=== PATIENT | female | born 1950 | race Caucasian/White ===

== ENCOUNTER 2024-05-12 06:01 | Inpatient (IN) | payer MEDICARE, OTHER, SELFPAY ==
[2024-05-10 10:40] VITALS: BMI 26.6
[2024-05-12] VITALS (9 sets, daily range): BP systolic 117–148; BP diastolic 68–79; PULSE 58–69; RESP 10–16; TEMP 36.2–36.7; O2SAT 94–99; BMI 26.6
[2024-05-12] MEDS: LACTATED RINGERS 1,000 ML 84 ML IV (07:07)
[2024-05-12] MEDS: VANCOMYCIN 1,000 MG/200 ML PIGGYBACK 200 MG IV (07:08)
[2024-05-12] MEDS: ACETAMINOPHEN 325 MG TABLET 975 MG PO (07:08)
[2024-05-12] MEDS: CELECOXIB 200 MG CAPSULE PO (07:09)
--- NOTE | 2024-05-12 07:38 | PM.PREOP ---
Pre-operative Note Interval Note History & Physical reviewed/Exam performed by Physician: Yes Changes to H&P: No
--- NOTE | 2024-05-12 07:38 | PM.OP.1 ---
Operative Date/Time/Diagnoses Date of procedure: 05/12/24 Time of procedure: 08:00 Pre-op diagnosis: Loose left knee patellar component status post total knee arthroplasty Post-op diagnosis: same Procedure & Clinicians Procedure: Left knee excision of and removal of patellar component Same procedure as scheduled: Yes Indications: This is a 73-year-old who has a remote history of a right total knee arthroplasty up in [place]. She did have fragmentation of her patella and loosening of her patella component. The component has progressively loosened and migrated and is causing substantial pressure on the skin. She was brought to the operating room for removal of the patellar component. Procedure options risks benefits and complications were discussed in detail Surgeon: Fiordaliza Jimenes Click Yes if Unassisted: Yes Anesthesia Type: General Operative Notes Findings: Grossly loose patellar component. Removed without difficulty. Additional cement chips removed without difficulty. Communication with the knee joint. Closure Type: primary Specimen(s): other (Synovium sent for PCR and culture and sensitivity) Estimated Blood Loss (mL): 20 Blood products transfused: none Tourniquet time (min): 22 Procedure in detail: Patient was brought to the operating room. A time-out was performed. She was given IV antibiotics. She underwent induction of general anesthesia. The right lower extremity was prepped draped standard sterile fashion. The patient's leg was positioned in a position that allowed flexion. The leg was flexed up. There was a more lateral skin incision but the patellar component was very prominent on the skin medially. A small incision was made over the anterior aspect of the knee dissection was carried out through skin and subcutaneous tissues. The patellar component was easily identifiable. It was carefully removed. I dissected soft tissue free from the patellar component and then removed any residual cement pieces. Portion of the synovium was sent for culture and sensitivity and for PCR to rule out low-grade infection. The knee was then meticulously irrigated with dilute saline. Final check showed no additional loose fragments or loose bodies. The wound was closed with interrupted Tevdek and Vicryl running Monocryl and several skin ghazala in glue. The wound was dressed sterilely. She tolerated the procedure well. Complications none. Complications: none Post-operative Condition: stable Disposition: Acute Care Plan for aftercare: Weightbearing as tolerated on the right lower extremity. Okay to begin [id number] exercises. Okay to start doing straight leg raises. Keep incision dry. Return to clinic for x-rays and wound check in 10-14 days. Two sutures to be removed.
[2024-05-12] MEDS: CEFAZOLIN 2 GM/100 ML PREMIX 100 ML IV (07:59)
--- NOTE | 2024-05-12 08:08 | SUR.OPER ---
Supine on padded OR bed. Pillow under head, arms secured on padded armboards <90 degree abduction. Safety belt across torso. Non-operative leg secured with tape over blanket over lower leg. Foam padded brace at thigh of operative leg.
[2024-05-12] MEDS: BUPIVACAINE 0.25% (PF) 60 ML, EPINEPHrine 0.3 MG INJ (08:18)
[2024-05-12] MEDS: OXYCODONE IR 5 MG TABLET PO (09:00)
== END 2024-05-12 09:42 | disposition home or self-care (01) | DRG 465 ==
PROVIDERS: Admitting Provider Orthopaedic Surgery; PCP Family Medicine; Referring Provider Orthopaedic Surgery; Visit Provider Orthopaedic Surgery
PROC: 0SPC0NZ Removal of Patellofemoral Synthetic Substitute from Right Knee Joint, Open Approach (ICD-10-PCS; principal; 2024-05-12 07:45)
DX: T84.032A Mechanical loosening of internal right knee prosthetic joint, initial encounter (principal)
CPT/HCPCS: 87070; 87075; 87205; 87801; J0171; J0690

== ENCOUNTER 2025-04-11 06:06 | Day surgery (SDC) | payer MEDICARE, OTHER, SELFPAY ==
[2025-04-05 14:19] VITALS: BMI 27.6
[2025-04-11] VITALS (13 sets, daily range): BP systolic 124–188; BP diastolic 59–86; PULSE 61–78; RESP 16–18; TEMP 36.4–36.7; O2SAT 94–98; BMI 28.5
--- NOTE | 2025-04-11 06:00 | DI.RAD.S_ITS ---
PROCEDURE: XR KNEE LT 1TO2V INDICATIONS: Postop, left unicondylar knee TECHNIQUE: 2 view(s) of the knee acquired. COMPARISON: None. FINDINGS: Bones: Patient is status post knee joint lateral unicondylar arthroplasty. Hardware components are in expected positions. Visualized bony structures are intact. Soft tissues: Overlying postoperative changes are noted. IMPRESSION: Expected post-operative appearance of a knee lateral unicondylar arthroplasty. Dictated by: Meche Morales MD, PhD on 04/11/2025 at 11:18 Approved by: Meche Morales MD, PhD on 04/11/2025 at 11:18
[2025-04-11] MEDS: CELECOXIB 200 MG CAPSULE PO (06:43)
[2025-04-11] MEDS: VANCOMYCIN 1,000 MG/200 ML PIGGYBACK 200 MG IV (06:43)
[2025-04-11] MEDS: ACETAMINOPHEN 325 MG TABLET 975 MG PO (06:43)
--- NOTE | 2025-04-11 07:35 | PM.PREOP ---
Pre-operative Note Interval Note History & Physical reviewed/Exam performed by Physician: Yes Changes to H&P: No
--- NOTE | 2025-04-11 07:36 | P.OP_ITS ---
Operative Date/Time/Diagnoses Date of procedure: 04/11/25 Time of procedure: 08:00 Pre-op diagnosis: left knee lateral OA Post-op diagnosis: same Procedure & Clinicians Procedure: Left knee lateral unicompartment replacement Same procedure(s) as scheduled: Yes Indications: The patient has had progressively worsening left knee pain with radiographic changes consistent with arthritis. Non-operative management has failed and the patient has requested unicompartment knee replacement. The risks, benefits and alternatives to surgery were discussed with the patient prior to proceeding. Risks discussed included, but were not limited to, failure to relieve pain, stiffness, infection, nerve damage, deep venous thrombosis, pulmonary embolism, stroke, coma, heart attack, permanent paralysis and , as well as the potential need for eventual revision of the prosthetic. Surgeon: Fiordaliza Jimenes Well [employer] Pump Equipment Operator: Papi Harry Anesthesia Type: General and Peripheral nerve block Operative Notes Findings: Severe left knee lateral compartment osteoarthritis, adequate stability, adequate bone Closure Type: primary Specimen(s): none sent Prosthetic devices, grafts, tissues, transplants, or devices: Jimenes and nephew lateral unicompartment size 5 femur, size 6 tibia Applied: none Estimated Blood Loss (mL): 150 Tourniquet time (min): 90 Procedure in detail: The patient was seen in the pre-operative area, where the left knee was identified as the operative site and this was marked with my initials. The patient received pre-operative antibiotics, and was taken to the operating room and placed on the operative table in the supine position. After satisfactory anesthesia, a sleeve setter safety stitch out was performed. The left leg was encircled with a tourniquet about the proximal thigh, and the leg was prepared from the toes to the tourniquet with ChloroPrep in the usual fashion and draped through sterile drapes. The leg was elevated and exsanguinated with Eschmark bandage and the tourniquet inflated to [250] mmHg pressure. A PA was used during the procedure and was essential for intraoperative retraction and safe implantation of the components. The knee was approached through an approximately 12 cm incision lateral parapatella incision and carried into the knee through a lateral parapatellar arthrotomy. The osteophytes and lateral meniscus were removed. Pins were placed for Cori assisted robotic navigation. Extra incisional pins were placed in the femur and tibia. The knee was meticulously mapped. Plan was taken and developed to optimize range of motion and stability. The Cori robotic bur was used for the distal femoral resection. She had somewhat sclerotic bone and I meticulously work to make sure at a completely smooth tibial surface and it was as close to the notch as possible. The tibia was resected without difficulty. The femur was carefully prepared. The bone was meticulously irrigated with normal saline. Small amount of additional meniscus was resected posterior capsule was checked and injected with Marcaine and 266 mg Exparel for postoperative pain management. There was a fairly large loose body in the posterior aspect of the knee which was mildly adherent. I specifically worked to remove loose body. The tibia was a size 6. It was noted that it fit without overhang. The tibia was pinned into place and drill holes were made. Trial reduction with the appropriate poly showed full range of motion and good stability at 0, 45. and 90? with normal tracking of the components without edge loading. The bone was meticulously irrigated and dried. Additional Marcaine was injected. The posterior capsule was injected with 0.25% Marcaine mixed with 266 ml Exparel for post-operative pain control. The remainder of this mixture was injected into the capsule and subcutaneous tissues during cement curing. Range of motion was [0-130], with good stability throughout the range. The trials were then remove. The cement was as applied and the final prosthetics placed. Excess cement was removed during and after cement curing. A brief lateral compartment Betadine soak was performed. After confirming there was no extruded cement posteriorly, the final tibial insert was placed. The knee was copiously irrigated and the tourniquet deflated. Hemostasis was obtained. The capsule was closed with interrupted vicryl. The subcutaneous tissue was closed with barbed sutures. The skin with a running 3-0 V-Lock suture and surgical glue. An Aquacel Ag dressing was applied and the patient was taken to recovery having tolerated the procedure well. Complications: none Post-operative Condition: stable Disposition: same day surgery Plan for aftercare: The patient will be maintained on a standard total knee replacement protocol with weight bearing as tolerated. The patient will receive aspirin and seq uential compression devices for DVT prophylaxis. The patient will be discharged home when safe for the home environment.
[2025-04-11] MEDS: TRANEXAMIC ACID 1,000 MG VIAL 1000 MG INJ ×2 (08:15→10:05)
--- NOTE | 2025-04-11 08:26 | SUR.OPER ---
Supine on padded OR bed. Pillow under head, arms secured on padded armboards <90 degree abduction. Safety belt across torso. Operative leg secured in [employer] positioner. Foam padded post at lateral thigh of operative leg. Final position approved by Dr. Jimenes.
[2025-04-11] MEDS: BUPivacaine 0.25% W/ EPI (PF) 30 ML VIAL 60 ML INJ (08:33)
[2025-04-11] MEDS: ONDANSETRON 4 MG/2 ML INJ IV (11:25)
--- NOTE | 2025-04-11 12:47 | SUR.PHASEII ---
Physical Therapy staff, Nery, notified for need of evaluation at 12:00; spoke with Nery directly.
--- NOTE | 2025-04-11 13:17 | SUR.PHASEII ---
Contacted Physical Therapy office and spoke to Lety regarding what time PT might be able to evaluate patient for discharge. Lety will pass on message to DARRION Gabriel. Per Nery, she can assess patient at approximately 1345. Notified patient and spouse.
--- NOTE | 2025-04-11 13:30 | PT.IIE ---
Current Diagnoses Unilateral primary osteoarthritis, left knee (04/11/25) Surgery Performed Operation Date: 04/11/25 07:45 Actual Procedures p Open lateral unicompartmental arthroplasty of left knee using cemented prosthesis-Robot(Left) - Fiordaliza Jimenes MD Surgical History (Last Updated 04/05/25 @ 14:29 by Jessica Dos Santos, RN) History of total right knee replacement Hx of right knee surgery (05/12/24) Medical History (Last Updated 05/10/24 @ 10:44 by Gayla Peña RN) GERD (gastroesophageal reflux disease) HLD (hyperlipidemia) Physical Therapy Inpatient Evaluation/Re-Eval M1 PT/OT-IP Prior Functional Status Start: 04/11/25 15:44 Freq: NEEDED Status: Active Protocol: Document 04/11/25 13:30 AB (Rec: 04/11/25 15:57 AB [id number]) Medical Review Prior Functional Status Medical History Yes Reviewed Communication able to make needs known; slow to respond to questions and seems groggy Mobility and Gait pt stated that she was independent with all mobilities and ambulation without AD Social History Household Members spouse Living Arrangements House Number of Floors ( One Floor Floors) Number of Stairs To has 4 steps with bilateral wide rails( can hold on to Enter/Railing? just one rail at a time) to enter the house Home Environment Standard Height Toilet,Walk in Shower Home Equipment Front Wheel Walker,Shower Seat without Backrest,Hand Held Shower,Grab Bars In Shower M2 PT-IP Current Condition Start: 04/11/25 15:44 Freq: NEEDED Status: Active Protocol: Document 04/11/25 13:30 AB (Rec: 04/11/25 15:57 AB [id number]) Physical Therapy Current Condition Current Condition Evaluation Date 04/11/25 Treatment Diagnosis s/p L uni knee; difficulty in walking Onset Date 04/11/25 M3 PT-IP Subjective Start: 04/11/25 15:44 Freq: NEEDED Status: Active Protocol: Document 04/11/25 13:30 AB (Rec: 04/11/25 15:57 AB [id number]) Subjective Physical Therapy Visit Type Type Initial Evaluation Visit Start Time 13:30 Visit Stop Time 14:25 Number of QA TEST LEAD Visits 0 Physical Therapy Visit Comments Patient Comments able to make needs known Therapy Pain Assessment Pain When Pain Assessed At Rest Pain Present Pain Present Pain Reported Location left knee Intensity 9 Scale Used Numeric (0 - 10) Pain Behaviors Guarding,Holding Area Pain Management Apply Cold,Distraction,Modification of Treatment,Timing Techniques of Activity with Medications M4 PT-IP Mobility and Gait Start: 04/11/25 15:44 Freq: NEEDED Status: Active Protocol: Document 04/11/25 13:30 AB (Rec: 04/11/25 15:57 AB [id number]) PT-Bed Mobility Assessment Supine to Sit Supine to Sit Standby Assistance PT-Transfer Assessment Sit to and From Stand Sit to and from Minimal Assistance,1 Person Assistance,Use of Upper Stand Extremities Equipment Transfer Assistive Gait Belt,Front Wheeled Walker Device Orthotic/Prosthetic No Devices or Brace: Transfers Transfer Destination Chair Transfer Technique ambulated Transfer Ability Level of Assist Contact Guard Assistance,Minimal Assistance,1 Person Assistance,Use of Upper Extremities Comments Mobility Comments pt seen in PACU. pt in bed and spouse in room. obtained PLOF and home set up. post-op folder provided and reviewed with pt. BP: 151/71. O2 sat: 97%. completed supine to sit SBA. able to sit on EOB SBA. BP: 160/86. sit to stand min A and cues and ambulated ~ 20 ft using FWW min A and cues for L quads activation. pt with L foot drop and had nerve block with sx. caregiver training conducted. educated spouse on how to use safety belt and how to assist pt. spouse was able to put safety belt on and assisted pt with sit to stand and ambulation using FWW. pt sat on chair. stair climbing training. educated pt and spouse on how to complete stairs using 1 rail. pt completed up/down step stool holding on to side of FWW (as stair rail) on L side ascending with B hands requiring mod A and max cues. spouse was able to assist. pt ambulated back to chair using FWW CGA. informed nurse that pt still has L foot drop and was feeling groggy. left pt with nurse. Gait Assessment Gait Gait Assistance Contact Guard Assist,Minimum Assistance,1 Person Assist Required: Distance (Feet) 20 Able to Maintain Yes Weight Bearing Status During Gait Assistive Devices Assistive Device Gait Belt,Front Wheeled Walker Orthotic/Prosthetic No Devices or Brace: Gait Deviations General Gait Pattern Antalgic,Decreased Stride Length,Decreased Feet Clearance,Step-to Gait Factors Limiting Gait Function Factors Limiting Abnormal Tonal Influences,Decreased Activity Tolerance, Gait Function Decreased Sensation,Decreased Strength,Difficulty Following Directions,Incoordination,Limited Range of Motion,Pain,Poor Balance,Poor Safety Awareness Stair Climbing Assessment Evaluation Level of Assist On Moderate Assistance,1 Person Assistance Stairs Devices Stair Climbing Left Railing Assistive Devices Technique/Endurance Stair Climbing Ascend and Descend Direction Stair Climbing Step to Step Technique Number of Steps 1 Climbed Query Text: Stair Climbing Set # 1 Repetitions (reps) PT-Balance Assessment Sitting Balance and Reactions Static Sitting Normal Balance Ability Dynamic Sitting Good Balance Ability Standing Balance and Reactions Static Standing Fair Balance Ability Dynamic Standing Fair Balance Ability Device Used FWW M5 PT-IP Objective Assessments Start: 04/11/25 15:44 Freq: NEEDED Status: Active Protocol: Document 04/11/25 13:30 AB (Rec: 04/11/25 15:57 AB [id number]) Orientation Orientation/Cognition Level of Alertness Alert Orientation Name,Place,Situation Language Function No Deficits Noted Ability Safety Awareness Decreased Safety Awareness Memory Description Short Term Impaired Comments slow to respond to questions Gross Range of Motion Lower Extremity ROM Assessment Left Impaired Impairments L knee flexion: ~ 70 deg Strength Lower Extremity Strength Assessment Left Impaired Hip 4-/5 Knee 3+/5 Ankle 3-/5 Sensation Assessment Sensation Sensation Numbness Description Comments Sensation Comments slight numbness on LLE Muscle Tone Comments Muscle Tone Comments Pt has L foot drop M6 PT-IP Treatment Start: 04/11/25 15:44 Freq: NEEDED Status: Active Protocol: Document 04/11/25 13:30 AB (Rec: 04/11/25 15:57 AB [id number]) Physical Therapy Treatment Exercises Exercises Heel Slides Education Education Provided Precautions,Weight Bearing Status,Post-Op Packet,Safety M7 PT-IP Assessment and Plan Start: 04/11/25 15:44 Freq: NEEDED Status: Active Protocol: Document 04/11/25 13:30 AB (Rec: 04/11/25 15:57 AB [id number]) PT Summary Assessment and Plan Potential Rehabilitation Fair Potential Status of Condition Evolving at Evaluation Summary Impairments Pain,ROM,Strength,Balance,Coordination,Sensation,Tone, Cognition,Bed Mobility,Transfers,Gait,Activity Tolerance Assessment Summary pt is a 74 y/o F s/p L uni knee POD 0. pt requiring CGA to min A for transfers and ambulation and mod A for stair climbing. Caregiver training conducted and spouse was able to assist pt. pt plans to go home with spouse to assist and has outpt PT set up. Goals Bed Mobility Goal Independent Transfer Goal Independent,Front Wheeled Walker Gait Goal Independent,Front Wheel Walker Gait Distance 200 Other Goals up/down 4 steps 1 rail mod I Days to Meet Goals 5 Frequency of Treatment Frequency Of Twice a Day Treatment Treatment Plan Physical Therapy Bed Mobility Training,Transfer Training,Gait Training, Treatment Plan Therapeutic Exercise,Balance Retraining,Post Op Education,Discharge Planning,Hot or Cold Pack, Neuromuscular Re-ed,Coordination Retraining,Manual Therapy Weight Bearing Status Weight Bearing Weight Bear as Tolerated Status Allowed Weight LLE WBAT Bearing Amount ( enter % or #) (%) Recommendations To Nursing Amount of Assist 1 Person Assist Needed Discharge Recommendations PT Discharge Home with 16/02 Assist Available,Outpatient PT Recommendations Transportation Needs Private Vehicle at Discharge - PT assist 1
--- NOTE | 2025-04-11 13:39 | SUR.PHASEII ---
Physical therapist here to evaluate patient for ambulation trial.
== END 2025-04-11 14:32 | disposition home or self-care (01) ==
PROVIDERS: PCP Family Medicine; Referring Provider Family Medicine; Visit Provider Orthopaedic Surgery
PROC: (CPT 27446; principal; 2025-04-11 07:45)
DX: M17.12 Unilateral primary osteoarthritis, left knee (principal); G89.18 Other acute postprocedural pain; M25.762 Osteophyte, left knee
CPT/HCPCS: 27446; 64450; 73560; 97162; 97530; C1776; J0666; J0689; J1100; J1171; J2405; J2704; J3010; J3375; J3490